=== PATIENT | female | born 1950 | race Caucasian/White ===

== ENCOUNTER 2018-04-28 12:03 | Day surgery (SDC) | payer MEDICARE, BC, OTHER ==
[2018-04-28] MEDS: NS 1,000 ML IV (06:00)
[~2018-04-28 12:03] MED LIST: LIDOCAINE 2% INJ 100 MG/5 ML SDV (FOR ANES.) As Ordered; PROPOFOL 200 MG/20 ML VIAL As Ordered
[2018-04-28] MEDS ORDERED: PROPOFOL 200 MG/20 ML VIAL As Ordered ×2 (13:01→13:06)
== END 2018-04-28 13:52 | disposition home or self-care (01) ==
LOC: M OPP 12:03
DX: Z12.11 Encounter for screening for malignant neoplasm of colon (principal); K64.0 First degree hemorrhoids; K57.30 Diverticulosis of large intestine without perforation or abscess without bleeding; Z86.010 Personal history of colon polyps; I10 Essential (primary) hypertension; E78.00 Pure hypercholesterolemia, unspecified; Z79.82 Long term (current) use of aspirin; Z79.899 Other long term (current) drug therapy; Z88.5 Allergy status to narcotic agent; Z88.1 Allergy status to other antibiotic agents; Z87.891 Personal history of nicotine dependence; Z98.51 Tubal ligation status
CPT/HCPCS: G0105

== ENCOUNTER → 2020-10-04 | Outpatient (CLI) | payer MEDICARE, BC ==
[~2020-10-04] MED LIST changes: +CART180C3 PO; +COQ-100C2 PO; +CRES10TA PO; -LIDOCAINE 2% INJ 100 MG/5 ML SDV (FOR ANES.) As Ordered; +LOSA100T50 PO; -PROPOFOL 200 MG/20 ML VIAL As Ordered; +ZOMI2.5T4 PO
--- NOTE | 2020-10-04 11:13 | REPMRS ---
Patient History The patient states she has not had a clinical breast exam in over a year. Patient is postmenopausal. No known family history of cancer. Digital Woman Screen Mammo: October 04, 2020 - Exam #: [id number] Bilateral CC and MLO view(s) were taken. Technologist: Mariana Morales, Technologist Prior study comparison: September 02, 2018, bilateral digital mammo screening bilat, performed at [facility]. August 11, 2017, bilateral digital mammo screening bilat, performed at [facility]. January 22, 2016, bilateral digital mammo screening bilat, performed at [facility]. FINDINGS: There are scattered fibroglandular densities. The Volpara volumetric breast density category is:B. There has been no change in the appearance of the mammogram from the prior studies. There is a mild amount of scattered fibroglandular density which is fairly symmetric. There is no interval development of dominant mass, architectural distortion, or grouped microcalcification suggestive of malignancy. 3-D tomosynthesis shows no additional findings. Assessment: BI-RADS/ACR category 1 mammogram. Negative Mammogram. Recommendation Routine screening mammogram of both breasts in 1 year (for women over age 40). This patient's [facility] Lifetime Breast Cancer Risk is estimated at 5.0 %. This mammogram was interpreted with the aid of an FDA-approved computer-aided dectection system. Electronically Signed By: Blayne Emerson MD 10/04/20 [id number]
== END ==
LOC: M WHC 10:15
PROVIDERS: ATTEND Family Medicine
DX: Z12.31 Encounter for screening mammogram for malignant neoplasm of breast (principal); R92.2 Inconclusive mammogram

== ENCOUNTER → 2020-10-22 | Outpatient (REF) | payer MEDICARE, OTHER, BC | LOC: M LAB REF 14:32 | PROVIDERS: ATTEND Physician Assistant | DX: D22.39 Melanocytic nevi of other parts of face (principal) ==

== ENCOUNTER → 2022-05-22 | Outpatient (CLI) | payer MEDICARE, BC, OTHER ==
[~2022-05-22] MED LIST changes: +LOSA100T45 PO; -LOSA100T50 PO
== END ==
LOC: M WHC 10:32
PROVIDERS: ATTEND Family Medicine
DX: Z12.31 Encounter for screening mammogram for malignant neoplasm of breast (principal); Z78.0 Asymptomatic menopausal state; R92.2 Inconclusive mammogram

== ENCOUNTER → 2022-06-17 | Outpatient (CLI) | payer MEDICARE, BC, OTHER | LOC: M WHC 08:10 | PROVIDERS: ATTEND Family Medicine | DX: R92.8 Other abnormal and inconclusive findings on diagnostic imaging of breast (principal) | CPT/HCPCS: 77065; G0279 ==

== ENCOUNTER → 2022-07-18 | Outpatient (REF) | payer MEDICARE, OTHER | LOC: M SFHCPLAZ 11:56 | PROVIDERS: ATTEND Family Medicine | DX: Z53.9 Procedure and treatment not carried out, unspecified reason (principal) ==

== ENCOUNTER → 2023-06-23 | Outpatient (CLI) | payer MEDICARE, BC, OTHER ==
[~2023-06-23] MED LIST changes: -LOSA100T45 PO; +LOSA100T46 PO
== END ==
LOC: M WHC 11:26
PROVIDERS: ATTEND Family Medicine
DX: Z12.31 Encounter for screening mammogram for malignant neoplasm of breast (principal)

== ENCOUNTER → 2023-11-02 | Day surgery (SDC) | payer MEDICARE, BC ==
[~2023-11-02] VITALS: Ht 157.5 cm; Wt 61.7 kg
[~2023-11-02] MED LIST changes: +CARV6.25 PO; +CHLO125TA PO; +CO Q100C10 PO; +ECOT81TA5 PO; +LIDOCAINE 2% 100MG/5ML SDV (FOR ANES.) As Ordered ONE; +MELO15TA28 PO; +ROSU10TA6 PO; +SPIR-10 PO; +THERTAB52 PO; +XIID5DRO; +fentaNYL 100 MCG/2 ML INJECTION As Ordered ONE; +propofoL 500 MG/50 ML VIAL As Ordered ONE
[2023-11-02] MEDS: NS 1,000 ML IV ONE (11:50)
[2023-11-02 14:38] VITALS: TEMP 98.4
[2023-11-02 14:51] VITALS: BP 109/69; O2SAT 99
== END | disposition home or self-care (01) ==
LOC: M OPP 11:15
PROVIDERS: ATTEND Internal Medicine Gastroenterology
DX: Z12.11 Encounter for screening for malignant neoplasm of colon (principal); Z86.010 Personal history of colon polyps; K64.0 First degree hemorrhoids; K57.30 Diverticulosis of large intestine without perforation or abscess without bleeding; K22.89 Other specified disease of esophagus; K44.9 Diaphragmatic hernia without obstruction or gangrene; R12 Heartburn; I10 Essential (primary) hypertension; Z79.02 Long term (current) use of antithrombotics/antiplatelets; Z79.82 Long term (current) use of aspirin; Z79.899 Other long term (current) drug therapy
CPT/HCPCS: 43239; 88305; G0105; J3010

== ENCOUNTER → 2024-07-01 | Outpatient (CLI) | payer MEDICARE, BC ==
[~2024-07-01] MED LIST changes: -LIDOCAINE 2% 100MG/5ML SDV (FOR ANES.) As Ordered ONE; -ROSU10TA6 PO; +ROSU10TA61 PO; -fentaNYL 100 MCG/2 ML INJECTION As Ordered ONE; -propofoL 500 MG/50 ML VIAL As Ordered ONE
== END ==
LOC: M WHC 08:58
PROVIDERS: ATTEND Internal Medicine
DX: Z12.31 Encounter for screening mammogram for malignant neoplasm of breast (principal); R92.323 Mammographic fibroglandular density, bilateral breasts

== ENCOUNTER → 2025-02-20 | Outpatient (CLI) | payer MEDICARE, BC ==
[~2025-02-20] MED LIST changes: +LIFI1DRO4; -XIID5DRO
== END ==
LOC: M PLAIMG 09:38
PROVIDERS: ATTEND Physician Assistant
DX: I36.1 Nonrheumatic tricuspid (valve) insufficiency (principal)